=== PATIENT | female | born 1945 | race Caucasian/White ===

== ENCOUNTER 2022-10-18 09:35 | Day surgery (SDC) | payer OTHER ==
[~2022-10-18] VITALS: Ht 160 cm; Wt 77.1 kg
[~2022-10-18 09:35] MED LIST: ASPI1TAB20 PO; ATOR20TA50 PO; BIOT5TAB3 PO; CALC1TAB31 PO; CHOL100055 PO; FURO40TA4 PO; LEVO25TA6 PO; LOP2C PO; LOSA100T33 PO; METO25TA5 PO; POTA-220 PO; TRIA0.5O2 EX
[2022-10-18] MEDS ORDERED: CIPROFLOXACIN 400MG/200ML 200 ML IV ONE (12:35)
[2022-10-18] MEDS ORDERED: MIDAZOLAM HCL 2MG/2ML 2ml VIAL (1mg/ml) ONE (12:49)
[2022-10-18] MEDS ORDERED: ONDANSETRON HCL 4 MG/2 ML VIAL ONE (12:50)
[2022-10-18] MEDS ORDERED: PROPOFOL 10 MG/ML 20 ML IV ONE (12:50)
[2022-10-18] MEDS ORDERED: GLYCOPYRROLATE 0.2 MG/ML 1ML VIAL ONE (12:50)
[2022-10-18] MEDS ORDERED: KETOROLAC TROMETH 60MG/2ML VIAL ONE (12:50)
[2022-10-18 13:20] VITALS: TEMP 97.6; O2SAT 100
[2022-10-18] MEDS ORDERED: HYDROmorphone HCL 2 MG/ML VL/or syr IV PRN (13:30)
[2022-10-18] MEDS ORDERED: ONDANSETRON HCL 4 MG/2 ML VIAL IV PRN (13:30)
[2022-10-18 14:05] VITALS: BP 145/84; PULSE 76; RESP 15; O2SAT 97
== END 2022-10-18 14:11 | disposition home or self-care (01) ==
LOC: SUR 09:35
PROVIDERS: ATTEND Urology
DX: N34.3 Urethral syndrome, unspecified (principal); N39.3 Stress incontinence (female) (male); E03.9 Hypothyroidism, unspecified; E11.22 Type 2 diabetes mellitus with diabetic chronic kidney disease; I12.9 Hypertensive chronic kidney disease with stage 1 through stage 4 chronic kidney disease, or unspecified chronic kidney disease; N18.30 Chronic kidney disease, stage 3 unspecified; Z88.1 Allergy status to other antibiotic agents; Z88.8 Allergy status to other drugs, medicaments and biological substances; Z80.1 Family history of malignant neoplasm of trachea, bronchus and lung; Z87.891 Personal history of nicotine dependence; Z79.82 Long term (current) use of aspirin; Z79.890 Hormone replacement therapy; Z98.890 Other specified postprocedural states; Z79.899 Other long term (current) drug therapy
CPT/HCPCS: 52270; 82962; J0744; J1885; J2250; J2405; J2704